=== PATIENT | female | born 1960 | race Caucasian/White ===

== ENCOUNTER 2018-05-15 10:22 | Day surgery (SDC) | payer BC ==
[2018-05-15] MEDS ORDERED: LIDOCAINE 4% SOLUTION 50 ML BTL (11:19)
[2018-05-15] MEDS ORDERED: FENTAnyl 50 MCG/ML VIAL ×2 (12:19)
[2018-05-15] MEDS ORDERED: MIDAZOLAM 1 MG/ML 2 ML INJ ×2 (12:19)
== END 2018-05-15 13:19 | disposition home or self-care (01) ==
LOC: GIL 10:22
DX: K92.1 Melena (principal); K29.30 Chronic superficial gastritis without bleeding; K57.90 Diverticulosis of intestine, part unspecified, without perforation or abscess without bleeding
CPT/HCPCS: 43239; 88305; 88312